=== PATIENT | female | born 1975 ===

== ENCOUNTER → 2022-11-08 | Outpatient (CLI) | payer OTHER ==
[2022-11-08 10:11] LABS: Partial Thromboplastin Time 23.6 sec (22.0-30.0); Prothrombin Time 10.9 sec (9.0-12.0)
[2022-11-08 14:21] LABS: HCT 34.4 % (37.2-46.3); HGB 9.9 g/dL (12.0-15.0); MCH 23.4 pg (27.0-32.0); MCHC 28.8 g/dL (32.0-37.0); MCV 81.3 fL (80.0-97.0); Mean Platelet Volume 11.2 fL (9.5-12.2); NRBC Per 100 WBC 0 /100 WBCS (0.0-0.0); Platelet Count 283 X 10*3/uL (140-440); RBC 4.23 X 10*6/uL (4.10-5.20); RDW 26.4 % (11.5-14.5); WBC 4.06 X 10*3/uL (4.50-10.00)
[2022-11-08 16:01] LABS: % Iron Saturation 41.74 (12.00-45.00); ALT 28 U/L (8-44); AST 26 U/L (13-35); Albumin 3.8 g/dL (3.8-4.9); Albumin/Globulin Ratio 1.84 (1.60-3.17); Alkaline Phosphatase 152 U/L (41-126); Blood Urea Nitrogen 9.6 mg/dL (9.0-27.0); Calcium 8.9 mg/dL (8.7-10.3); Carbon Dioxide 25.1 mmol/L (20.0-27.5); Chloride 109 mmol/L (96-109); Ferritin 28.2 ng/mL (10.0-291.0); Globulin 2.1 g/dL (1.6-3.3); Glucose 80 mg/dL (70-110); Iron 142 ug/dL (50-170); Magnesium 2.2 mg/dL (1.5-2.4); Non-African American GFR(CKD) 103.6 (60.0-200.0); Phosphorus 3.6 mg/dL (2.4-5.1); Potassium 5.3 mmol/L (3.5-5.5); Sodium 143 mmol/L (135-145); Total Iron Binding Capacity 340 ug/dL (228-460); Total Protein 5.9 g/dL (6.2-8.2)
[2022-11-08 16:29] LABS: LDL Cholesterol,Calculated 40.9 mg/dL (0.0-131.0); Prealbumin 15.7 mg/dL (18.0-42.0)
[2022-11-09 15:49] LABS: Zinc, Serum 59 ug/dL (60-130)
== END | disposition home or self-care (01) ==
LOC: LABWHC1 08:48
PROVIDERS: ATTEND Surgery Plastic and Reconstructive Surgery
DX: E89.1 Postprocedural hypoinsulinemia (principal); E66.01 Morbid (severe) obesity due to excess calories; D50.8 Other iron deficiency anemias; K91.2 Postsurgical malabsorption, not elsewhere classified; E45 Retarded development following protein-calorie malnutrition; E55.9 Vitamin D deficiency, unspecified; E44.0 Moderate protein-calorie malnutrition; K74.1 Hepatic sclerosis; N19 Unspecified kidney failure; T56.894A Toxic effect of other metals, undetermined, initial encounter; K50.90 Crohn's disease, unspecified, without complications
CPT/HCPCS: 36415; 80053; 80061; 82306; 82525; 82607; 82728; 82746; 83036; 83540; 83550; 83735; 83970; 84100; 84134; 84255; 84425; 84443; 84590; 84630; 85027; 85610; 85730